=== PATIENT | female | born 2000 | race Caucasian/White ===

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

== ENCOUNTER 2021-03-24 01:13 | Outpatient (CLI) | payer MEDICAID, SELFPAY ==
--- NOTE | 2021-03-24 | DI.RAD_ITS ---
Exam(s) RF BARIUM SWALLOW EXAM: RF BARIUM SWALLOW CLINICAL HISTORY: DYSPHAGIA, R13.10, EARLY SATIETY, R68.81, NAUSEA, R11.0 TECHNIQUE: 2D and realtime digital imaging was performed. CONTRAST MATERIAL: Oral barium Oral water soluble contrast was administered. COMPARISON: No exams were available for comparison FINDINGS: CHEST X-RAY: The heart and pulmonary vasculature are within normal limits. The lungs are clear. No pl eural effusion or pneumothorax is present. The bones are within normal limits fo the patient's age. ESOPHAGRAM: The esophagus is patent with no evidence for erosions, fold thickening, strictures, or ma sses. With regards to the motility, there is a normal primary stripping wave. No tertiary contraction s were noted. There is no hiatal hernia or gastroesophageal reflux. IMPRESSION: Normal esophogram RADIATION DOSE DELIVERED: kristin Jeter=7.11 mGy
[2021-03-24] MEDS: Barium Sulfate 60% W/V 355 ML BTL PO (11:01)
== END 2021-03-24 01:33 ==
PROVIDERS: Visit Provider Internal Medicine
DX: R13.10 Dysphagia, unspecified (principal); R68.81 Early satiety; R11.0 Nausea
CPT/HCPCS: 74221; J3490

== ENCOUNTER 2021-10-28 04:25 | Outpatient (CLI) | payer MEDICAID, SELFPAY ==
[2021-10-28 11:37] LABS: Vitamin B12 888 pg/mL (193-986)
[2021-10-29 09:13] LABS: IgA 181 mg/dL (85-499); IgG 1195 mg/dL (610-1,616); IgM 140 mg/dL (35-242)
== END 2021-10-28 04:26 | disposition home or self-care (01) ==
LOC: LBO 04:26
PROVIDERS: PCP Internal Medicine; Visit Provider Internal Medicine
DX: I49.8 Other specified cardiac arrhythmias (principal)
CPT/HCPCS: 36415; 82784; 82607

== ENCOUNTER 2025-04-14 08:41 | Outpatient (REF) | payer MEDICAID, SELFPAY ==
[2025-04-14 15:23] LABS: Absolute Basophil Count 0.05 10^3/uL (0.0-0.2); Absolute Eosinophil Count 0.13 10^3/uL (0.0-0.7); Absolute Lymphocyte Count 1.25 10^3/uL (1.2-3.4); Absolute Monocyte Count 0.36 10^3/uL (0.1-0.8); Absolute Neutrophil Count 1.68 10^3/uL (1.2-6.7); Basophils % 1.4 %; Eosinophils % 3.7 %; HCT 42.9 % (36.0-46.0); HGB 14.2 g/dL (11.2-15.7); MCH 31.7 pg (27.0-33.0); MCHC 33.1 % (32.0-36.0); MCV 96 fL (80-95); MPV 10.8 fL (8.0-11.0); Monocytes % 10.4 %; Neutrophils % 48.5 %; Platelet Count 251 10^3/uL (130-400); RBC 4.48 10^6/uL (3.93-5.22); RDW 11.5 % (11.7-14.6); RDW-SD 40.5 fL; WBC 3.47 10^3/uL (4.4-10.8)
[2025-04-14 15:59] LABS: ALT 36 U/L (14-59); AST 19 U/L (15-37); Albumin 4.5 g/dL (3.4-5.0); Alkaline Phosphatase 67 U/L (46-116); Anion Gap 6.6 mmol/L (3-11); BUN 11 mg/dL (7-18); Bilirubin, Total 0.7 mg/dL (0.2-1.0); CO2 31.4 mmol/L (21.0-32.0); CREATININE 0.7 mg/dL (0.55-1.02); Calcium 9.5 mg/dL (8.5-10.1); Calculated LDL 67 mg/dL (<100); Chloride 102 mmol/L (98-107); Cholesterol 132 mg/dL (<200); Estimated GFR 123.78 (mL/min/1.73m2); Glucose 83 mg/dL (74-106); HDL Cholesterol 58 mg/dL (>or=50); Sodium 140 mmol/L (136-145); Total Protein 7.6 g/dL (6.4-8.2); Triglyceride 39 mg/dL (<150)
== END 2025-04-14 08:42 | disposition home or self-care (01) ==
LOC: NCHCN 08:41
PROVIDERS: PCP Internal Medicine; Visit Provider Family Medicine
DX: F64.0 Transsexualism (principal)
CPT/HCPCS: 80053; 80061; 84402; 84403; 85025

== ENCOUNTER 2025-04-23 13:37 | Outpatient (REF) | payer MEDICAID, SELFPAY ==
[2025-05-04 13:03] LABS: Testosterone, Free 51.7 ng/dL (<0.13-1.08)
== END 2025-04-23 13:38 | disposition home or self-care (01) ==
LOC: NCHCN 13:37
PROVIDERS: PCP Family Medicine; Visit Provider Family Medicine
DX: F64.0 Transsexualism (principal)
CPT/HCPCS: 84402; 84403

== ENCOUNTER 2025-06-11 15:11 | Outpatient (REF) | payer MEDICAID, SELFPAY ==
[2025-06-21 23:31] LABS: Testosterone, Free 65.8 pg/mL (0.1-6.4)
== END 2025-06-11 15:12 | disposition home or self-care (01) ==
LOC: NCHCN 15:11
PROVIDERS: PCP Family Medicine; Visit Provider Family Medicine
DX: F64.0 Transsexualism (principal)
CPT/HCPCS: 84402; 84403